=== PATIENT | male | born 1985 | race Two or more races ===

== ENCOUNTER 2025-03-23 18:53 | Emergency (ER) | payer SELFPAY ==
[~2025-03-23] VITALS: Ht 175.3 cm; Wt 77.3 kg
[2025-03-23 19:48] VITALS: TEMP 98.4
[2025-03-23 20:27] LABS: PLATELET COUNT (AUTO) 336 K/uL (150-450); RED BLOOD CELL COUNT(AUTO) 4.49 MIL/uL (4.50-5.90); RED CELL DISTRIBUTION WIDTH 13.4 % (11.5-14.5); WHITE BLOOD COUNT (AUTO) 5.6 K/uL (4.5-11.0)
[2025-03-23 20:30] LABS: ALCOHOL, BLOOD (SERUM) < 3 mg/dL (0-10)
[2025-03-23 20:36] LABS: CALCIUM, TOTAL 9.0 mg/dL (8.8-10.5); CREATININE 1.06 mg/dL (0.60-1.30); GLOMERULAR FILTR. RATE CALC > 60 mL/min (>60); GLUCOSE,RANDOM 89 mg/dL (70-110); SODIUM SERUM 138 mmol/L (136-145); UREA NITROGEN, BLOOD 21 mg/dL (7-18)
[2025-03-23 20:41] LABS: TROPONIN I-HIGH SENSITIVITY 18 ng/L (<76)
[2025-03-23 20:42] LABS: ASPARTATE AMINOTRANSFERASE 21 U/L (15-37); CREATINE KINASE, TOTAL ONLY 156 U/L (39-308); TOTAL PROTEIN, SERUM 7.7 g/dL (6.4-8.2)
[2025-03-23] MEDS ORDERED: NALO4SPR NASAL (21:27)
[2025-03-23 22:05] VITALS: BP 146/91; PULSE 84; RESP 18; O2SAT 96
== END 2025-03-24 02:49 | disposition home or self-care (01) ==
LOC: EMS 18:54
DX: T40.2X1A Poisoning by other opioids, accidental (unintentional), initial encounter (principal); F11.90 Opioid use, unspecified, uncomplicated; Y92.89 Other specified places as the place of occurrence of the external cause
CPT/HCPCS: 99285; 71045; 80048; 80076; 82550; 83880; 84484; 85025; 93005; G0480; 36415-L1; 36415-TC